=== PATIENT | female | born 1990 | race Caucasian/White ===

== ENCOUNTER 2024-05-06 15:23 | Emergency (ER) | payer SELFPAY ==
[~2024-05-06] VITALS: Ht 157.5 cm; Wt 59.0 kg
[2024-05-06 15:36] VITALS: TEMP 98.6; O2SAT 99
[2024-05-06] MEDS ORDERED: AMOX1TAB16 MT (17:51)
[2024-05-06 18:00] VITALS: BP 103/75; PULSE 71; RESP 16
[2024-05-06] MEDS: KETOROLAC 30MG/ML VIAL IM ONE (18:00)
[2024-05-06] MEDS: AMOXICILLIN/POTASSIUM CLAVULANATE 875/125MG TAB PO ONE (18:00)
== END 2024-05-06 19:56 | disposition home or self-care (01) ==
LOC: ER 15:23
DX: K04.7 Periapical abscess without sinus (principal); R51.9 Headache, unspecified; Z98.890 Other specified postprocedural states
CPT/HCPCS: 99283; 96372; J1885